=== PATIENT | female | born 1990 | race Caucasian/White ===

== ENCOUNTER 2017-10-14 18:05 | Emergency (ER) | payer MEDICAID ==
[2017-10-14 21:24] LABS: URINE BLOOD (Dip) POC Trace-intact (NEGATIVE); URINE GLUCOSE (Dip) POC Negative (NEGATIVE); URINE KETONES (Dip) POC 3+ (NEGATIVE); URINE LEUKOCYTE EST (Dip) POC 2+ (NEGATIVE); URINE NITRITE (Dip) POC Negative (NEGATIVE); URINE TOTAL PROTEIN POC 1+ (NEGATIVE)
[2017-10-14] MEDS: KETOROLAC 30 MG INJ IV (21:41)
[2017-10-14] MEDS: SOD CHLORIDE 0.9% 1,000 ML IV (21:42)
[2017-10-14] MEDS: DIPHENHYDRAMINE 50 MG INJ IV (21:42)
[2017-10-14] MEDS: METOCLOPRAMIDE 10 MG INJ IV (21:42)
== END 2017-10-14 22:51 | disposition home or self-care (01) ==
LOC: FTE 18:05
DX: N39.0 Urinary tract infection, site not specified (principal)
CPT/HCPCS: 81003; 96374; 96375; 99284-25